=== PATIENT | female | born 1990 | race Caucasian/White ===

== ENCOUNTER 2018-01-01 16:34 | Emergency (ER) | payer OTHER ==
[~2018-01-01] VITALS: Ht 167.6 cm; Wt 47.6 kg
--- NOTE | 2018-01-01 17:15 | NUR ---
ANA MRAIA VAIL AT THE BEDSIDE FOR MSE.
[2018-01-01] MEDS ORDERED: LET TOPICAL SOLUTION 8 ML UDC ONE (17:28)
[2018-01-01] MEDS ORDERED: ONDANSETRON ODT 4 MG TAB.RAPDIS ONE (17:28)
[2018-01-01] MEDS ORDERED: SODIUM BICARBONATE 4.2 % (NEUT) 5 ML VIAL ONE (17:28)
[2018-01-01] MEDS ORDERED: MORPHINE SULFATE 4 MG/1 ML DISP.SYRIN ONE (17:28)
[2018-01-01] MEDS ORDERED: LIDOCAINE HCL 2% 20 ML VIAL ONE (17:28)
[2018-01-01] MEDS ORDERED: SODIUM BICARBONATE 4.2 % (NEUT) 5 ML VIAL TP ONE (17:30)
[2018-01-01] MEDS ORDERED: LIDOCAINE HCL 2% 20 ML VIAL TP ONE (17:30)
[2018-01-01] MEDS ORDERED: LET TOPICAL SOLUTION 8 ML UDC TOP ONE (17:30)
[2018-01-01] MEDS ORDERED: MORPHINE SULFATE 4 MG/1 ML DISP.SYRIN IM ONE (17:30)
[2018-01-01] MEDS ORDERED: ONDANSETRON ODT 4 MG TAB.RAPDIS SL ONE (17:30)
--- NOTE | 2018-01-01 18:45 | NUR ---
APPLIED DRESSTING TO I&D SITE PER MD ORDER. NO ACUTE BLEEDING/DRAINAGE NOTED.
[2018-01-01 19:06] VITALS: BP 118/74
--- NOTE | 2018-01-01 19:06 | NUR ---
Patient discharged to home in stable conditon and in steady gait. Written and verbal after care instructions given. Patient verbalizes understanding of instructions.
== END 2018-01-01 19:04 | disposition home or self-care (01) ==
LOC: ER 16:38
DX: L02.416 Cutaneous abscess of left lower limb (principal); F11.10 Opioid abuse, uncomplicated
CPT/HCPCS: A4663; J2270; J3490; Q0162